=== PATIENT | male | born 2000 | race Hispanic/Latino ===

== ENCOUNTER 2025-01-19 10:07 | Emergency (ER) | payer SELFPAY ==
[2025-01-19 10:09] VITALS: BP 105/70; PULSE 66; RESP 18; TEMP 36.6; O2SAT 100; BMI 29.1
[2025-01-19] MEDS: Tetracaine 0.5% Ophthalmic Bottle 1 DRP RIGHT EYE (10:21)
--- NOTE | 2025-01-19 10:23 | EX.ED.VIS.EY ---
HPI History of Present Illness Chief Complaint: Eye Problem Detail of Chief Complaint: Right eye pain Informant: patient Narrative Narrative: Patient presents with discomfort to his right eye. Patient states that he has been having some discomfort over the last 3 days. He has been waking up in the morning and feels like his lower lid is somewhat swollen. Typically it gets better throughout the day and discomfort seems to improve throughout the day. At times he has a foreign body sensation underneath the right lower eyelid. 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 Also eats a lot of eggs and he did not know if he had an egg shell possibly that may have gotten in his eye but does not recall a direct time of injury or exposure. Denies visual changes. Denies recent illness. PFSH PFS Home Medications ?Medication ?Instructions ?Recorded ?Last Taken ?Type NK 01/19/25 Unknown History Allergy/AdvReac Type Severity Reaction Status Date / Time No Known Allergies Allergy Verified 01/19/25 10:10 Social History Smoking Status: Never smoker ROS ROS ED Review of Systems ROS Unobtainable: other Constitutional Constitutional ED: Reports lethargy; Denies chills, fever(s), sweats or weight loss Eyes Eyes: Reports other Details: Right eye pain ; Denies blurry vision, change in vision or diplopia ENT ENT ED: Denies rhinorrhea or sore throat Cardiovascular Cardiovascular: Denies chest pain, orthopnea or racing heartbeat Respiratory/Chest Respiratory/Chest: Denies cough, dyspnea, dyspnea on exertion, orthopnea or sputum Gastrointestinal Gastrointestinal: Denies abdominal pain, diarrhea, nausea or vomiting Genitourinary Genitourinary ED: Denies dysuria, hematuria or urinary frequency Musculoskeletal Musculoskeletal: Denies arthralgias, back pain, myalgias or neck pain Integumentary Denies abscess, Abrasions or rash Neurologic Neurologic: Denies headache(s) or weakness Psychiatric Psychiatric: Denies anxiety, depression or suicidal thoughts Endocrine Endocrinology: Denies polydipsia, polyphagia or polyuria Hematologic/Lymphatic Hematologic/Lymphatic: Denies easy bleeding, easy bruising or lymphadenopathy Allergic/Immunologic Allergic/Immunologic ED: Denies mouth swelling, tongue swelling or urticaria EXAM Physical Exam Const Vital Signs: 01/19/25 10:09 Temperature 97.8 F Temperature Source Temporal Pulse Rate 66 Respiratory Rate 18 Blood Pressure 105/70 Blood Pressure Mean 81 Pulse Ox 100 Oxygen Delivery Method Room Air Positive well nourished and well developed General Appearance ED: well developed and NAD HEENT Reports TM's clear and moist mucous membranes HEENT Narrative: Pupils equal react light bilaterally. Right upper and lower eyelids everted and no foreign bodies noted. Extraocular muscle movement is normal and painless. There is no conjunctival erythema. No drainage. No edema of the eyelids noted. normocephalic and atraumatic; Negative for trauma or tenderness Tympanic Membrane ED: Yes TM's clear Eyes PERRL and EOMs intact bilaterally General Eye ED: Negative for pale conjunctiva or scleral icterus Neck no lymphadenopathy, supple and no JVD General: Negative for tenderness Chest Wall inspection of chest normal and palpation of chest normal Chest: Negative for tenderness Resp normal respiratory effort and clear to auscultation bilaterally Effort and Inspection: Negative for respiratory distress or pain with movement Auscultation: Negative for rhonchi, wheezes or diminished lung sounds Cardio regular rate, regular rhythm, S1 normal heart sound, S2 normal heart sound and no murmurs Peripheral Pulses: pulses 2+ throughout GI normal to inspection, nondistended, normoactive bowel sounds, soft to palpation, non-tender, non-distended and no masses Back/Spine no CVA tenderness and no thoracic nor lumbar tenderness Extremity normal to inspection General Extremety ED: Negative for edema General Extremity: Negative for edema Neuro oriented x3, CN's II-XII intact bilaterally, no sensory deficits noted and gait normal Sensorium / Orientation: awake, alert, oriented to person, oriented to place and oriented to time Motor Exam: strength 5/5 throughout and strength abnormal Psych mental status grossly normal Skin no rashes or lesions noted and no wounds MDM MDM MDM Narrative Medical decision making narrative: Patient presents with right eye pain. Clinically looks well. I did stain his eye with fluorescein and there was no corneal abrasion noted. Do not appreciate any foreign bodies. He said no vision changes. I will treat him with gentamicin ophthalmic drops and refer to ophthalmology for follow-up. Discharge Plan Triage Chief Complaint: Eye Problem ED Provider: Cathy White Dx/Rx/DC Orders Clinical Impression: Acute right eye pain Instructions: ED Pain, Acute, Uncertain Cause Prescriptions: No Action NK Referrals: Rafita Palacios MD [Med Staff - Active Staff, Opthamology] - 3-5 Days Print Language: Kyrgyz Disposition Disposition: Home, Self Care
[2025-01-19] MEDS: Gentamicin Sulfate 1 OPTH.BTL 2 DRP RIGHT EYE (10:44)
[2025-01-19 10:46] VITALS: BP 105/76; PULSE 61; RESP 14; TEMP 36.6; O2SAT 98
== END 2025-01-19 10:49 | disposition home or self-care (01) ==
LOC: ED 10:28
PROVIDERS: Emergency Provider Emergency Medicine; Visit Provider Emergency Medicine
DX: H57.11 Ocular pain, right eye (principal)
CPT/HCPCS: 99282